=== PATIENT | female | born 1995 | race Caucasian/White ===

== ENCOUNTER 2024-12-12 06:57 | Emergency (ER) | payer BC, SELFPAY ==
[2024-12-12] VITALS (8 sets, daily range): BP systolic 100–116; BP diastolic 63–71; PULSE 87–156; RESP 12–26; TEMP 35.8–36.7; O2SAT 96–100; BMI 21.3
--- NOTE | 2024-12-12 | ECG_ITS ---
Test Reason : TACHYCARDIA Blood Pressure : */* mmHG Vent. Rate : 117 BPM Atrial Rate : 117 BPM P-R Int : 128 ms QRS Dur : 68 ms QT Int : 308 ms P-R-T Axes : 79 83 55 degrees QTcB Int : 429 ms Sinus tachycardia Biatrial enlargement Abnormal ECG No previous ECGs available Referred By: Generic ED Physician Electronically Signed By: Austen Day
--- NOTE | ~2024-12-12 | CT_ITS ---
CLINICAL HISTORY: SOB chest pain CT angiography chest with contrast. 3D Postprocessing. Comparison: None Findings: The heart is not enlarged. The main pulmonary artery measures 2.2 cm in diameter and 391 Hounsfield units. No main, lobar, or segmental pulmonary arterial filling defect. No intrathoracic lymphadenopathy. The lungs are clear. No acute fractures. IMPRESSION: No evidence of pulmonary embolism. Clear lungs. This document has been electronically signed by: Jermaine Acosta DO on 12/12/2024 11:18:47
--- NOTE | ~2024-12-12 | US_ITS ---
CLINICAL HISTORY: LLQ PAIN US pelvis transabdominal and transvaginal with color Doppler and arterial/venous spectral tracing of both ovaries Comparison: None Findings: Transabdominal scanning performed for overall anatomy. Transvaginal scanning performed for additional detail. Anteverted uterus is 6.7 cm length. Normal myometrium. IUD normally positioned. No endometrial lesion, 2 mm thickness. Right ovary 3.2 x 2.4 x 2.9 cm. Left ovary 4.5 x 3.5 x 3.6 cm. Normal color Doppler with arterial/venous spectral tracing of both ovaries. Large amount of complex pelvic fluid. IMPRESSION: 1. Large amount of complex pelvic fluid, suspicious for hemoperitoneum. No evidence of ovarian torsion, slthough the margins of the left ovary are slightly ill-defined. Differential includes hemorrhagic/ruptured ovarian cyst. 2. Normally positioned IUD without uterine abnormality. This document has been electronically signed by: Jermaine Acosta DO on 12/12/2024 10:41:16
--- NOTE | ~2024-12-12 | CT_ITS ---
CLINICAL HISTORY: Left lower abdominal pain CT abdomen and pelvis with contrast Comparison: US - US PELVIC OVARIAN DOPPLER - 12/12/24 08:48 EDT Findings: The heart is not enlarged. The lung bases are clear. Unremarkable gallbladder and solid organs. No urolithiasis. No bowel obstruction. Normal appendix. Large volume intermediate density intraperitoneal fluid with hyperdense components within the pelvis. Ovaries are not well defined. Left adnexal hypodensity measuring up to 2.5 x 2.2 x 2.3 cm with small adjacent calcifications medially. No definite left adnexal fat densities. IUD normally positioned. The urinary bladder is incompletely distended. No acute fracture. IMPRESSION: Large volume hemoperitoneum is reidentified. Acute blood is present within the pelvis without definite active extravasation. Differential continues to include hemorrhagic/ruptured ovarian cyst. Ruptured ovarian dermoid is within the differential given the left adnexal calcifications although no definite fat density components are identified within the pelvis. This document has been electronically signed by: Jermaine Acosta DO on 12/12/2024 11:08:37
--- OUTSIDE RECORDS SUMMARY | 2024-12-12 07:21 | XMS_ITS | Clinical Summary ---
Author Organization [facility] Address [address] [place] [address] Phone Care Team Providers Care Developing Machine Operator Name Role Phone Sobia Conway MD Primary Care Provider [phone] Immunizations Immunization Administration Dates Next Due DTP 03/29/1996,01/22/1996,1995 DTaP 5 06/10/2000,03/21/1997 HPV, Quadrivalent 05/08/2011,04/02/2010,03/23/20 09 Hep A, Adult 05/12/2016 Hep A, ped/adol 02/28/2014 Hep B, ped/adol 03/29/1996,1995,1995 Hib (PRP-T) 12/09/1996, 6,01/22/1996,11/16 IPV 06/10/2000 Influenza, injectable, quadr ivalent, preservative free 05/12/2016 Influenza, injectable, trivalent 03/23/2009 Influenza, intranasal, quadrivalent 05/12/2014,1 Influenza, intranasal, trivalent 05/11/2012,04/20,04/02/2010 MMR 06/12/1999,09/12/1996 Meningococcal Conj (Menactra) MCV4P 02/28/2014,0 03/22/2008 OPV 03/29/1996,01/22/1996,1995 Tdap 03/22/2008 Varicella 03/22/2008,09/12/1996 Family History Relation Name Status Comments Maternal Grandfather Materna l grandfather: cardiac Maternal Grandmother Materna l grandmother: athitis Mother Alive Mother: Alive a nd well Other Family history of Allergies, No family history of Asthma, Family history of cancer, Family history of Coronary artery disease, Family history of Diabetes mellitus Social History Tobacco Use Types Packs/Day Years Used Date Smoking Tobacco: Never Comments:Never smoker Comments Unknown Sex and Gender Information Value Date Recorded Sex Assigned at Not on file Legal Sex Female 5:23 PM EDT Gender Identity Not on file Sexual Orientation Not on file Last Filed Vital Signs Vital Sign Reading Time Taken Comments Blood Pressure 115/77 10/06/2016 12:00 AM EDT Pulse 87 10/06/2016 12:00 AM EDT Temperature 37 ??C (98.6 ??F) 10/06/2016 12:00 AM EDT Respiratory Rate - - Oxygen Saturation - - Inhaled Oxygen Concentration - - Weight 51.8 kg (114 lb 3.2 oz) 10/06/2016 12:00 AM EDT Height 158.8 cm (5' 2.5 ) 05/12/2016 12:00 AM ED T Body Mass Index 20.55 05/12/2016 12:00 AM EDT Plan of Treatment Health Maintenance Due Date Last Done Comments DTaP,Tdap,and Td Vaccines (7 - Td or Tdap) 03/22/2018 03/22/2008, 06/10/2000, 03/21/1997, Additional history exists Influenza Vaccines (#1) 2024 05/12/20 16, 05/12/2014, 05/10/2013, Additional history exists COVID-19 Vaccine (2023- season) 2024 Hepatitis B Vaccines Completed 03/29/1996, 1995, 1995 HIB Vaccines Completed 12/09/1996, 03/20, 01/22/1996, Additional history exists MMR Vaccines Completed 06/12/1999, 09/12/1996 IPV Vaccines Completed 06/10/2000, 03/20, 01/22/1996, Additional history exists Varicella Vaccines Completed 03/22/2008, 09/12/1996 HPV Vaccines Completed 05/08/2011, 03/20, 03/23/2009 Meningococcal Vaccine Completed 02/28/2014, 008 Hepatitis A Vaccines Completed 05/12/2016, 02/29/20 14 Men B Vaccine Aged Out No longer elig ible based on patient's age to complete this topic Pneumococcal Vaccine Aged Out No long er eligible based on patient's age to complete this topic Procedures * Due to [place] state law, this organization might not be sharing sensitive test results. Procedure Name Priority Date/Time Associated Diagnosis Comments CHLAMYDIA AND GONORRHEA, AMPLIFIED Routine 03/01/2014 4:32 PM EDT from Last 3 Months or Most Recently Relevant to Health Maintenance Results * Due to [place] law, this organization might not be sharing sensitive test results. * Chlamydia and Gonorrhoea, Amplified (03/01/2014 4:32 PM EDT) URINE CHLAMYDIA AMP PROBE NEGATIVE [facility] Comment: NO CHLAMYDIA TRACHOMATIS RNA DETECTED IN THIS PATIENT'S SAMPLE. (REFERENCE RANGE/NORMAL VALUE: NOT DETECTED) URINE GC AMP PROBE NEGATIVE [facility] Comment: NO NEISSERIA GONORRHOEAE RNA DETECTED IN THIS PATIENT'S SAMPLE. (REFERENCE RANGE/NORMAL VALUE: NOT DETECTED) NOTE: This test uses global cto-mediated amplification method to detect rRNA from C.Trachomatis and N.Gonorrhoeae. A negative result does not preclude infection. In the case of a negative urine result, testing of an endocervical(female) or urethral(male) specimen is recommended if there is high clinical suspicion of infection. The performance characteristics of this test have not been evaluated in children. The Aptima Combo2 assay is not intended for the evaluation of suspected sexual abuse or for other medico-legal indications. The ordering provider should assess if the patient had consensual sex without risk of sexual abuse. Consult the [facility] if needed. Contact phone number . Therapeutic failure or success cannot be determined with the Aptima Combo2 assay since nucleic acid may persist following appropriate antimicrobial therapy. The Centers for Disease Control and Prevention (CDC) recommends confirmatory retesting using culture or a different nucleic acid amplification test when positive results occur, if indicated. Testing performed or reported by [facility], a Service of [facility], [address] [place] [id number] Zheng Hughes, Res Counselor 03/01/2014 4:32 PM EDT Narrative [facility] - 03/01/2014 4:32 PM EDT URINE CHLAMYDIA GC AMP PROBE us Fallon Quinones NP LAB MICROBIOLOGY - GENERA L ORDERABLES Final Result [facility] [address] [place] [address], from Last 3 Months or Most Recently Relevant to Health Maintenance Care Teams Developing Machine Operator Relationship Specialty Start Date End Date Sobia Conway MD [address] [facility] [place] [id number] PCP - General 02/27/17
--- NOTE | 2024-12-12 07:24 | ED.ABDPAIN ---
HPI - Abdominal Pain General Chief Complaint: Abdominal Pain Stated Complaint: Diff Breathing Abd Pain Time Seen by Provider: 12/12/24 07:13 Source: patient and family Mode of arrival: ambulatory Limitations: no limitations History of Present Illness ED Provider: DR. Pruitt HPI narrative: 29-year-old female came in for evaluation of multiple symptoms started since last night. Symptoms started with diffuse abdominal pain last night at 19:00 that is progressively getting worse since last night now she has severe diffuse abdominal pain, no nausea, no vomiting, no diarrhea, no dysuria, no frequency urination, no vaginal bleed or discharge, sexually active with 1 partner with no risk for STDs. Had 1 time episode of severe abdominal pain and it was ovarian cyst. Patient is also complaining of chest pain and difficulty breathing that is started since this morning, no lower extremity swelling or pain, never had history of PE or DVT. Patient declined chance of being . Related Data Previous Rx's ?Medication ?Instructions ?Recorded doxycycline monohydrate 100 mg 100 mg PO BID 10 days #20 caps 08/28/22 capsule Allergies Allergy/AdvReac Type Severity Reaction Status Date / Time latex [LATEX] Allergy Unknown HIVES Verified 12/12/24 07:02 Review of Systems Review of Systems All other systems are reviewed and are negative Constitutional: Reports as per HPI and Reports no additional constitutional complaints Eyes: Reports as per HPI and Reports no additional eye complaints Reports system reviewed and no additional complaints, except as documented Cardiovascular: Reports as per HPI and Reports no additional cardiovascular complaints Respiratory: Reports as per HPI and Reports no additional respiratory complaints Gastrointestinal: Reports as per HPI and Reports no additional gastrointestinal complaints Genitourinary: Reports no additional female genitourinary complaints Musculoskeletal: Reports no additional musculoskeletal complaints Skin/Breast: Reports system reviewed and no additional complaints, except as docu Psychiatric: Reports no additional psychiatric complaints Endocrine: Reports no additional endocrine complaints Hematologic/Lymphatic: Reports no additional hematologic/lymphatic complaints Allergic/Immunologic: Reports no additional allergic/immunologic complaints Reports system reviewed and no additional complaints, except as documented and Reports Abnormal speech present. [facility] Social History Social History Alcohol intake: current Alcohol intake frequency: holidays/special occasions only Smoked in Last 30 Days: No Use of substances other than those prescribed or required for medical reasons: No Advance Directives: No Advance Directives Information Provided: Yes Do you have a plan to hurt others: No Plan Patient : No Physical Exam ED Vital Signs: Vital Signs - 24 hr 12/12/24 06:59 12/12/24 09:00 12/12/24 09:50 Temperature 96.4 F L Pulse Rate 143 H 156 H Pulse Rate [Left Apical] 100 Respiratory Rate 19 26 H Blood Pressure 100/70 Pulse Oximetry 100 100 Oxygen Delivery Method Room Air Room Air 12/12/24 10:00 12/12/24 11:24 12/12/24 12:15 Temperature 98.1 F 97.6 F Pulse Rate 115 H 87 88 Pulse Rate [Left Apical] Respiratory Rate 16 16 18 Blood Pressure 116/71 108/63 112/65 Pulse Oximetry 100 100 Oxygen Delivery Method Room Air Room Air 12/12/24 12:30 Temperature 97.5 F Pulse Rate 96 Pulse Rate [Left Apical] Respiratory Rate 12 Blood Pressure 112/69 Pulse Oximetry Oxygen Delivery Method BMI result Body Mass Index 21.3 Vital signs have been reviewed and appear to be correct. Blood pressure elevated. Heart rate normal. Respiratory rate normal. Temperature normal. Oxygen saturation normal. Appearance: Pale, Alert. Oriented X3. No acute distress. Head: Normal external exam. Normocephalic. Atraumatic. No Garcia signs noted. No raccoon eyes noted Eyes: PERRLA. EOMI. Conjunctiva and sclera normal. Eyelids normal. ENT: TM's Normal. Pharynx normal. Uvula midline. Moist mucous membranes. No trismus noted. No drooling noted. No muffled voice noted. Neck: Normal inspection. Neck supple. FROM. No adenopathy. Thyroid Normal. No meningeal signs. No neck mass noted. CVS: Normal heart rate and rhythm. Heart sound normal. No murmurs noted. Pulses normal throughout. Respiratory: No respiratory distress. Painless inspiration. Breath sounds normal. No wheezes/rales/rhonchi noted. Chest nontender. No accessory muscle usage noted or decreased air movement noted. Abdomen: Diffuse abdominal tenderness, +guarding, +rebound tenderness. Bowel sounds normal in all 4 quadrants. No distention noted. No organomegaly noted. No visible injury noted. Back: No CVA tenderness. Full range of motion noted. Skin: Skin warm and dry. Normal skin color. Normal skin turgor. No rashes/lesions/lacerations noted. Extremities: No lower extremity edema. Extremities exhibit normal range of motion. Extremities nontender. Neuro: Oriented X 3. Cranial nerve exam: II-XII are grossly intact No motor deficit. No sensory deficit. Reflexes normal. Course Reevaluation(s) Reevaluation #1: 29-year-old female came in with severe abdominal pain and severe anemia, CT abdomen pelvis/ultrasound of the pelvis is consistent with rupture hemorrhagic ovarian cyst with acute anemia hemoglobin dropped from 11-8.3 patient will be receiving a unit of RBCs signed consent in the chart. New OBGYN coverage today due to holidays case discussed with Dr.Wool Vo Ob from mud analysis supervisor at [facility] who accepted the patient for further evaluation. Heart rate has been improving. Blood pressure has been stable. Patient was complaining of shortness of breath, with elevated D-dimer, CT angio is negative for pulmonary embolism. Time: 11:47 Medical Decision Making Differential Diagnosis Differential Diagnoses: The differential diagnosis associated with the presentation includes (Perforated viscus, colitis, diverticulitis, ectopic , ruptured cyst, hemorrhagic cyst rupture, kidney stone, UTI, pyelonephritis.) Admission/Observation Consideration of admission/observation: Escalation of care including admission/observation considered Consult Healthcare Provider Management of the patient was discussed with: Contract Project Manager (Dr. Graham at [facility]) Lab Data MDM Lab Attestation statement: I reviewed the patient's lab results. 12/12/24 11:01 12/12/24 07:26 Labs: Lab Results 12/12/24 12/12/24 12/12/24 Range/Units 07:26 11:01 11:16 WBC 22.7 H 19.4 H (4.8-10.8) X10*3/uL RBC 3.69 L 2.64 L D (4.20-5.50) X10*6/uL Hgb 11.6 L 8.3 L D (12.0-16.0) g/dl Hct 32.5 L 23.2 L D (37.0-47.0) % MCV 88.1 87.9 (80.0-98.0) fL MCH 31.4 31.4 (27.0-33.0) pg MCHC 35.7 H 35.8 H (31.0-35.0) g/dl RDW 12.0 12.1 (11.0-16.0) % Plt Count 314 233 D (160-400) X10*3/uL MPV 8.9 L 8.8 L (9.4-12.3) fL Immature Gran % (Auto) 0.9 H 1.0 H (0.0-0.4) % Neut % (Auto) 85.3 H 87.0 H (45-73) % Lymph % (Auto) 6.0 L 5.8 L (20-40) % [place] % (Auto) 7.6 6.0 (2-11) % Eos % (Auto) 0.0 0.0 (0-4) % Baso % (Auto) 0.2 0.2 (0-2) % Lymph # (Auto) 1.4 1.1 L (1.2-4.9) X10*3/uL [place] # (Auto) 1.7 H 1.2 (0.1-1.2) X10*3/uL Eos # (Auto) 0.0 0.0 (0.0-0.4) X10*3/uL Baso # (Auto) 0.0 0.0 (0.0-0.2) X10*3/uL Abs Immat Gran (auto) 0.20 H 0.19 H (0.00-0.03) X10*3/uL Absolute Neuts (auto) 19.3 H 16.9 H (2.0-8.3) x10*3/uL Absolute Nucleated RBC 0.000 0.000 (0.0-0.012) X10*3/uL Nucleated RBC % (auto) 0.0 0.0 (0.0-0.2) /100WBC Smear Tech's Comments VERIFIED D-Dimer High Sensitivty 310 NG/ML Sodium 135 (135-145) mmol/L Potassium 3.8 (3.3-5.1) mmol/L Chloride 103 (96-108) mmol/L Carbon Dioxide 17 L (22-29) mmol/L Anion Gap 19 (12-20) BUN 15 (9-16) mg/dL Creatinine 0.86 (0.5-1.4) mg/dL Estim Creat Clear Calc 79.8 Estimated GFR > 60 Random Glucose 169 H (60-115) mg/dL Calcium 9.1 (8.4-10.2) mg/dL Total Bilirubin 1.2 H (0.0-1.0) mg/dL AST 18 (5-31) U/L ALT < 6 (0-31) U/L Alkaline Phosphatase 42 (39-117) U/L Troponin I High Sens < 2.7 (<3.5-17.0) ng/L Total Protein 7.2 (6.5-8.0) g/dL Albumin 4.6 (3.5-5.0) g/dL Beta HCG, Quant < 2 mIU/mL Blood Type O Positive Antibody Screen NEGATIVE Crossmatch See Detail Independent Interpretation I performed an independent interpretation of an: Ultrasound (Pelvic ultrasound:. Large amount of complex pelvic fluid, suspicious for hemoperitoneum. No evidence of ovarian torsion, slthough the margins of the left ovary are slightly ill-defined. Differential includes hemorrhagic/ruptured ovarian cyst. 2. Normally positioned IUD without uterine abnormality) and CT Scan (Abdomen pelvis:Large volume hemoperitoneum is reidentified. Acute blood is present within the pelvis without definite active extravasation. Differential continues to include hemorrhagic/ruptured ovarian cyst. Ruptured ovarian dermoid is within the differential given the left adnexal calcification) Radiology Impression Discussion of test interpretation with radiology: I have reviewed the radiologist's reading. Medications Administered Discontinued Medications Generic Name Dose Route Start Last Admin Trade Name Freq PRN Reason Stop Dose Admin Hydromorphone HCl 1 mg 12/12/24 09:38 12/12/24 09:43 Hydromorphone Hcl 1 Mg/Ml Syringe IVPUSH 12/12/24 09:39 1 mg ONCE ONE Administration Protocol Hydromorphone HCl 1 mg 12/12/24 09:58 12/12/24 10:03 Hydromorphone Hcl 1 Mg/Ml Syringe IVPUSH 12/12/24 09:59 1 mg ONCE ONE Administration Protocol Lactated Ringer's 1,000 mls @ 999 mls/hr 12/12/24 07:30 12/12/24 09:00 Lr IV 12/12/24 08:30 Infused .Q1H1M MIYA Infusion Lactated Ringer's 1,000 mls @ 999 mls/hr 12/12/24 10:00 12/12/24 10:03 Lr IV 12/12/24 11:00 999 mls/hr .Q1H1M MIYA Administration Iohexol 100 ml 12/12/24 09:43 12/12/24 09:44 Iohexol 350 Mg/Ml 100 Ml Infus..Btl IV 12/12/24 09:44 85 ml ONCE ONE Administration Ketorolac Tromethamine 15 mg 12/12/24 07:22 12/12/24 07:35 Ketorolac Tromethamine 15 Mg/Ml Vial IVPUSH 12/12/24 07:23 15 mg ONCE ONE Administration Morphine Sulfate 1 mg 12/12/24 07:22 12/12/24 07:35 Morphine Sulfate 2 Mg/Ml Cartridge IVPUSH 12/12/24 07:23 1 mg ONCE ONE Administration Protocol Ondansetron HCl 4 mg 12/12/24 11:31 12/12/24 11:38 Ondansetron Hcl 4 Mg/2 Ml Vial IVPUSH 12/12/24 11:32 4 mg ONCE ONE Administration Critical Care Time Critical Care Time Critical Care Time: Yes Total Critical Care Time: 60 Attestation: The patient was critically ill with a high probability of imminent or life-threatening deterioration. I spent greater than 30 minutes of discontinuous time evaluating the patient, delivering critical care at the bedside, discussing evaluating data with consultants. Critical care time does not include time spent performing separately billable procedures or teaching. Time spent performing critical care was 60 minutes. Discharge Plan Discharge Clinical Impression: Ovarian cyst rupture, Anemia Patient Disposition: [facility] Transfer Details: [facility] at [facility] Prescriptions: No Action doxycycline monohydrate 100 mg capsule 100 mg PO BID 10 Days Qty: 20 0RF Print Language: Armenian
[2024-12-12 07:31] LABS: Basophils Percent Auto 0.2 % (0-2); Hematocrit 32.5 % (37.0-47.0); Hemoglobin 11.6 g/dl (12.0-16.0); Imm Gran Pct Auto 0.9 % (0.0-0.4); Lymphocytes Absolute Auto 1.4 X10*3/uL (1.2-4.9); MANUAL DIFF FLAG SCAN; Mean Corpuscular HGB Conc 35.7 g/dl (31.0-35.0); Mean Corpuscular Hemoglobin 31.4 pg (27.0-33.0); Mean Corpuscular Volume 88.1 fL (80.0-98.0); Mean Platelet Volume 8.9 fL (9.4-12.3); Monocytes Absolute Auto 1.7 X10*3/uL (0.1-1.2); Monocytes Percent Auto 7.6 % (2-11); Neutrophils Absolute Auto 19.3 x10*3/uL (2.0-8.3); Neutrophils Percent Auto 85.3 % (45-73); Platelet Count 314 X10*3/uL (160-400); Red Blood Count 3.69 X10*6/uL (4.20-5.50); SCAN SMEAR FLAG 1; White Blood Count 22.7 X10*3/uL (4.8-10.8)
[2024-12-12] MEDS: Lactated Ringers 1,000 ML 999 ML IV ×2 (07:34→10:03)
[2024-12-12] MEDS: Ketorolac Tromethamine 15 MG/ML VIAL IVPUSH (07:35)
[2024-12-12] MEDS: Morphine Sulfate 2 MG/ML CARTRIDGE 1 MG IVPUSH (07:35)
[2024-12-12 07:39] LABS: D Dimer High Sensitivity 310 NG/ML
[2024-12-12 07:47] LABS: Alanine Aminotransferase < 6 U/L (0-31); Albumin Level 4.6 g/dL (3.5-5.0); Alkaline Phosphatase 42 U/L (39-117); Anion Gap 19 (12-20); Aspartate Amino Transferase 18 U/L (5-31); Bilirubin Total 1.2 mg/dL (0.0-1.0); Blood Urea Nitrogen 15 mg/dL (9-16); Calcium 9.1 mg/dL (8.4-10.2); Carbon Dioxide 17 mmol/L (22-29); Chloride 103 mmol/L (96-108); Creatinine Clr Calc Pharmacy 79.8; Estimated Glomerular Filt Rate > 60; Glucose Random 169 mg/dL (60-115); Potassium 3.8 mmol/L (3.3-5.1); Sodium 135 mmol/L (135-145); Total Protein 7.2 g/dL (6.5-8.0)
[2024-12-12 07:55] LABS: Troponin-I High Sensitivity < 2.7 ng/L (<3.5-17.0)
[2024-12-12 08:03] LABS: SLIDE REVIEW VERIFIED
--- NOTE | 2024-12-12 08:10 | PC.NURSE ---
this nurse spoke with provider, no sepsis protocol to be done at this time, provider wishes to wait on radiology. pt is afebile at this time.
--- NOTE | 2024-12-12 08:26 | PC.NURSE ---
patient a&ox3, iv inserted, labs drawn, ekg performed, compliance monitor applied- sinus tach on monitor, ivf hung per order pt medicated for pain 03/29 abdominal, pt awaiting radiology for scans, call bartlett within reach, plan of care ongoing.
--- NOTE | 2024-12-12 08:52 | PC.NURSE ---
IVF continue to run slowly, pt to ultrasound
[2024-12-12 09:20] LABS: HCG Quantitative < 2 mIU/mL
[2024-12-12] MEDS: HYDROmorphone HCl 1 MG/ML SYRINGE IVPUSH ×3 (09:43→12:40)
[2024-12-12] MEDS: iohexoL 350 MG/ML 100 ML INFUS..BTL IV (09:44)
--- NOTE | 2024-12-12 09:47 | PC.NURSE ---
pt medicated for 9/10 pain per order
--- NOTE | 2024-12-12 10:07 | PC.NURSE ---
pt began crying/tearful and stating she had 10/10 abd pain coming in waves, hr had increased to 150s and rr mid 20s. provider was notified, additional medication for pain was ordered and given, 2nd bag of IVF was hung, family at bedside, call bartlett within reach, plan of care ongoing.
[2024-12-12 11:06] LABS: MANUAL DIFF FLAG NO
[2024-12-12 11:09] LABS: Basophils Percent Auto 0.2 % (0-2); Hematocrit 23.2 % (37.0-47.0); Imm Gran Abs Auto 0.19 X10*3/uL (0.00-0.03); Lymphocytes Absolute Auto 1.1 X10*3/uL (1.2-4.9); Lymphocytes Percent Auto 5.8 % (20-40); Mean Corpuscular HGB Conc 35.8 g/dl (31.0-35.0); Mean Corpuscular Hemoglobin 31.4 pg (27.0-33.0); Mean Corpuscular Volume 87.9 fL (80.0-98.0); Mean Platelet Volume 8.8 fL (9.4-12.3); Monocytes Absolute Auto 1.2 X10*3/uL (0.1-1.2); Neutrophils Absolute Auto 16.9 x10*3/uL (2.0-8.3); Platelet Count 233 X10*3/uL (160-400); Red Blood Count 2.64 X10*6/uL (4.20-5.50); Red Cell Distribution Width 12.1 % (11.0-16.0); White Blood Count 19.4 X10*3/uL (4.8-10.8)
[2024-12-12 11:23] LABS: Hemoglobin 8.3 g/dl (12.0-16.0)
[2024-12-12] MEDS: ondansetron HCL 4 MG/2 ML VIAL IVPUSH (11:38)
--- NOTE | 2024-12-12 11:46 | PC.NURSE ---
pt has become increasingly pale, rn cardiac nsr, pt dry heaving- medicated for nausea, will be getting a blood transfusion- consent form signed with pt/provider, awaiting for blood to be ready.
--- NOTE | 2024-12-12 12:49 | MHC.EDTECH ---
Called [facility] to confirm location for transfer [facility], no room number . Nurse to nurse number is .
--- NOTE | 2024-12-12 12:51 | PC.NURSE ---
Addendum entered by Tiffani Smiley RN 12/12/24 13:10: blood transfusion continues to run upon patients discharge to [facility] at 1251. Original Note: blood transfusion: this nurse called the blood bank to ask about how to document the transfusion as the patient is leaving the facility with blood running, the blood bank was unsure. pt has left for [facility] will speak with clinical coordinator. for documentation purposes she left the facility at 1251.
--- NOTE | 2024-12-12 12:51 | PC.NURSE ---
this nurse called [facility] and gave a minimal report to ashleigh- when attempting to give report the nurse stated we are all set mervat medic Christiano Krishna is aware this nurse attempted to give report. Pt left facility with 1st unit of blood running.
--- NOTE | 2024-12-12 13:57 | PC.NURSE ---
this nurse just got a phone call from Meg nurse sow farm technician calling from [facility]- the floor was upset as they hadnt gotten any type of report. This nurse stated that when I called and told them I was calling to give Nurse to Nurse report that I was told by Maliha they were all set as written in my previous note. This sow farm technician stated shes not even a nurse. This nurse then proceeded to give report to Meg who requested additional information about the transfusion start time- this nurse faxed a screen print of the information requested to this nurse sow farm technician. All other information had been printed and sent with the medic.
== END 2024-12-12 12:51 | disposition short-term general hospital (02) ==
PROVIDERS: Emergency Provider Emergency Medicine
DX: N83.202 Unspecified ovarian cyst, left side (principal); D64.9 Anemia, unspecified; R10.32 Left lower quadrant pain
CPT/HCPCS: 36415; 36430; 71275; 74177; 76830; 76856; 80053; 84484; 84702; 85025; 85379; 86850; 86900; 86901; 86920; 93005; 93975; 96361; 96374; 96375; 96376; 99285; J1171; J1885; J2270; J2405; J7120; P9016; Q9967

== ENCOUNTER → 2024-12-12 07:18 | Outpatient (BNV) | payer BC, SELFPAY | PROVIDERS: Emergency Provider Emergency Medicine; Visit Provider Internal Medicine Cardiovascular Disease | DX: R00.0 Tachycardia, unspecified (principal); I51.7 Cardiomegaly | CPT/HCPCS: 93010 ==

== ENCOUNTER → 2024-12-12 07:19 | Outpatient (BNV) | payer BC, SELFPAY | PROVIDERS: Emergency Provider Emergency Medicine; Visit Provider Radiology Diagnostic Radiology | DX: R10.32 Left lower quadrant pain (principal); R19.00 Intra-abdominal and pelvic swelling, mass and lump, unspecified site | CPT/HCPCS: 76830; 76856 ==